=== PATIENT | female | born 1955 | race Caucasian/White ===

== ENCOUNTER 2020-01-23 15:04 | Emergency (ER) | payer OTHER, BC ==
[2020-01-23 15:24] VITALS: BMI 26.0
--- OUTSIDE RECORDS SUMMARY | 2020-01-23 15:27 | XMS ---
:1955 Author Organization [facility] Care Team Providers Name Role Phone NEERU TORRES Unavailable Unavailable Leeroy Rao MD Unavailable Unavailable Maggie Brownlee Unavailable Unavailable Re-disclosure Warning The records that you are about to access may contain information from federally- assisted alcohol or drug abuse programs. If such information is present, then the following federally mandated warning applies: This information has been disclosed to you from records protected by federal confidentiality rules (42 CFR part 2). The federal rules prohibit you from making any further disclosure of this information unless further disclosure is expressly permitted by the written consent of the person to whom it pertains or as otherwise permitted by 42 CFR part 2. A general authorization for the release of medical or other information is NOT sufficient for this purpose. The Federal rules restrict any use of the information to criminally investigate or prosecute any alcohol or drug abuse patient.The records that you are about to access may contain highly sensitive health information, the redisclosure of which is protected by Article 27-F of the [place] State Public Health law. If you continue you may haveaccess to information: Regarding HIV / AIDS; Provided by facilities licensed or operated by the [facility] Office of Mental Health; or Provided by the [facility] Office for People With Developmental Disabilities. If such information is present, then the following [facility] mandated warning applies: This information has been disclosed to you from confidential records which are protected by state law. State law prohibits you from making any further disclosure of this information without the specific written consent of the person to whom it pertains, or as otherwise permitted by law. Any unauthorized further disclosure in violation of state law may result in a fine or alf sentence or both. A general authorization for the release of medical or other information is NOT sufficient authorization for further disclosure. Allergies and Adverse Reactions Type Description Substance Reaction Status Data Source(s ) Food allergy shellfish derived shellfish derived UNKNOWN [facility] Drug allergy tramadol tramadol NAUSEA [facility] Food allergy lactose lactose UNKNOWN [facility] Drug allergy naproxen naproxen NAUSEA [facility] Encounters Encounter Providers Location Date Indications Data Source(s ) Outpatient Attender: 12/11/2018 CHEST PAIN [place] Leeroy Bliagos 09:30:00 AM UNSPECIFIED Hospi donald FUENTES EDT - 12/11/2018 09:02:00 AM EDT CHEST PAIN UNSPECIFIED Patient discharged. Emergency Attender: BRIAN 11/21/2018 09:21:[facility] CHEST PAINS Outpatient Attender: Maggie 07/24/2018 11:10:00 [facility] Medications Medication Brand Start Product Dose Route Administrative Pharmacy [facility] Indications Reaction Description Data Name Date Form Instructions Instructions Source(s) atorvastati Atorva TABLET 20 mg ORAL complet [facility] n 20 MG statin [place] Oral Tablet [facility] [Lipitor] m Atorvastati n Calcium Omeprazole Omepra CAPSULE, 40 mg ORAL complet [facility] 40 MG zole DELAYED [facility] [place] Delayed RELEASE Hospital Release Oral Capsule Aspirin 81 Aspiri ENTERIC 81 mg ORAL complet [facility] MG Delayed n COATED [facility] [place] Release TABLET Hospital Oral Tablet Metformin Metfor TABLET 1000 ORAL complet Whi te hydrochlori min mg [place] de 500 MG Hcl Hospital Oral Tablet [Glucophage ] Metformin Hcl Hydrochloro Hctz/L TABLET 1 ORAL complet [facility] thiazide isinop {Caps [place] 12.5 MG / ril ule} Hospital Lisinopril 10 MG Oral Tablet [Zestoretic ] Hctz/Lisino pril latanoprost Latano SOLUTION 0 OPHTHA complet White 0.05 MG/ML prost [facility] Solution [Xalatan] Latanoprost Timolol DROP 1 OPHTHA complet White Maleate [drp] [facility] Cholecalcif Cholec TABLET 1000 ORAL complet [facility] freddy alcife [facility] [place] (Vitamin rol Hospital D3) (Vitam in D3) Metoprolol Metopr TABLET 25 mg ORAL complet [facility] Tartrate 25 olol [facility] [place] MG Oral Tartra Hospital Tablet te Insurance Providers Payer name Policy type Policy ID Covered Covered green party's Policy P titus / Coverage green party ID relationship to Croft Inf ormation type croft BLUE CROSS [id number] SP [id number] SUPP PLAN MEDICARE [id number] LEHIGH [id number] HEALTH PLAN HMO Problems, Conditions, and Diagnoses Code Display Name Description Problem Type Effective Data Sour ce(s) Dates Z79.84 USP Z79.84 Diagnosis 12/11/2018 [place] (current) use of 09:01:00 AM Hospita l oral hypoglycemic EDT drugs 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 Diagnosis 12/11/2018 [place] (current) use of 09:01:00 AM Hospita l aspirin EDT M06.9 Rheumatoid M06.9 Diagnosis 12/11/2018 [place] arthritis, 09:01:00 AM Hospital unspecified EDT J45.909 Unspecified J45.909 Diagnosis 12/11/2018 [place] asthma, 09:01:00 AM Hospital uncomplicated EDT Z68.26 Body mass index Z68.26 Diagnosis 12/11/2018 [place] (BMI) 26.0-26.9, 09:01:00 AM Hospita l adult EDT E66.9 Obesity, E66.9 Diagnosis 12/11/2018 [place] unspecified 09:01:00 AM Hospital EDT E78.5 Hyperlipidemia, E78.5 Diagnosis 12/11/2018 [place] unspecified 09:01:00 AM Hospital EDT E11.9 Type 2 diabetes E11.9 Diagnosis 12/11/2018 [place] mellitus without 09:01:00 AM Hospita l complications EDT I10 Essential I10 Diagnosis 12/11/2018 [place] (primary) 09:01:00 AM Hospital hypertension EDT 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 Z91.013 Allergy to seafood ALLERGY TO SEAFOOD Diagnosis 9 [place] 09:21:00 PM [facility] [employer] Z91.011 Allergy to milk ALLERGY TO MILK Diagnosis 11/21/2018 [place] products PRODUCTS 09:21:00 PM [facility] [employer] Z90.89 Acquired absence ACQUIRED ABSENCE Diagnosis 11/21/2018 [place] of other organs OF OTHER ORGANS 09:21:[address] [facility] [employer] EDT [employer] Z41.1 Encounter for ENCOUNTER FOR Diagnosis 11/21/2018 [facility] cosmetic surgery COSMETIC SURGERY 09:21:00 PM [employer] E78.00 Pure PURE Diagnosis 11/21/2018 [place] hypercholesterolem HYPERCHOLESTEROLEM 09:21:00 PM [facility] ia, unspecified IA, UNSPECIFIED EDT [employer] I10 Essential ESSENTIAL Diagnosis 11/21/2018 [place] (primary) (PRIMARY) 09:21:00 PM [facility] hypertension HYPERTENSION EDT [employer] E11.9 Type 2 diabetes TYPE 2 DIABETES Diagnosis 11/21/2018 [place] mellitus without MELLITUS WITHOUT 09:21:00 PM [facility] complications COMPLICATIONS EDT [employer] R07.89 Other chest pain OTHER CHEST PAIN Diagnosis 11/21/2018 [place] 09:21:00 PM [facility] [employer] R07.2 Precordial pain PRECORDIAL PAIN Diagnosis 11/21/2018 [place] 09:21:00 PM [facility] [employer] Results ID Date Data Source [id number] 12/11/2018 09:31:00 AM EDT [facility] Industrial Sociologist: LAMBERT MARII Name Value Range Interpretation Description Data Sup porting Code Source(s) Document(s ) Glucose 124 mg/dL [place] [Mass/volume] [facility] in Capillary blood by Glucometer Procedure Social History Code Duration Value Status Description Data Source(s ) Smoking Unknown if ever completed Unknown if ever [facility] smoked smoked Hospital Vital Signs ID Date Data Source UNK Name Value Range Interpretation Code Description Data Source(s) Systolic blood 106 mm[Hg] 106 mm[Hg] [facility] [place] [facility] Diastolic blood 54 mm[Hg] 54 mm[Hg] [facility] ins pressure Hospital Respiratory rate 14 /min 14 /min [facility] Heart rate 66 /min 66 /min [facility] Body temperature 36.98465 Khloe 36.22867 Khloe [facility] Body temperature 98.4 [degF] 98.4 [degF] [facility] Body mass index 26.6 kg/m2 26.6 kg/m2 [facility] ins (BMI) [Ratio] Hospital Body weight 141 [lb_av] 141 [lb_av] [facility]
[2020-01-23] MEDS ORDERED: ONDANSETRON 4 MG/2 ML VIAL IVPUSH ONE (16:19)
[2020-01-23] MEDS ORDERED: LACTATED RINGERS SOLUTION 1000 ML INFUS.BAG IV ONE (16:20)
[2020-01-23] MEDS ORDERED: ACETAMINOPHEN 1000 MG/100 ML VIAL (NON FORMULARY) IVPB ONE (16:31)
[2020-01-23] MEDS ORDERED: FAMOTIDINE 20 MG/50 ML IVPB 20 MG/50 ML MG IVPB ONE (16:31)
[2020-01-23 16:34] LABS: BASO % 0.4 % (0-2.0); EOS % 1.1 % (0-4.5); HEMATOCRIT 36.2 % (32.4-45.2); HEMOGLOBIN 12.4 GM/dL (10.7-15.3); LYMPH % 19.8 % (8-40); MCH 32.8 pg (25.7-33.7); MCHC 34.2 g/dl (32.0-36.0); MEAN CELL VOLUME 95.7 fl (80-96); MEAN PLT VOLUME 9.4 fl (7.5-11.1); MONO % 5.7 % (3.8-10.2); PLATELET COUNT 217 K/MM3 (134-434); RBC 3.78 M/mm3 (3.60-5.2); RDW 12.7 % (11.6-15.6); WHITE BLOOD COUNT 6.4 K/mm3 (4.0-10.0)
[2020-01-23 16:58] LABS: BILIRUBIN,TOTAL 1.3 mg/dL (0.2-1); BLOOD UREA NITROGEN 16.2 mg/dL (7-18); CALCIUM 9.1 mg/dL (8.5-10.1); CREATININE 0.7 mg/dL (0.55-1.3); POTASSIUM 3.6 mmol/L (3.5-5.1); TOT PROT 7.2 g/dl (6.4-8.2)
[2020-01-23 17:07] LABS: PH,URINE 7.5 (5.0-8.0); URINE APPEARANCE CLEAR; URINE BILIRUBIN NEGATIVE (NEGATIVE); URINE COLOR YELLOW; URINE GLUCOSE (UA) TRACE (NEGATIVE); URINE KETONE TRACE (NEGATIVE); URINE LEUK ESTERASE NEGATIVE (NEGATIVE); URINE NITRITE NEGATIVE (NEGATIVE); URINE PROTEIN NEGATIVE (NEGATIVE); URINE UROBILINOGEN 0.2 mg/dL (0.2-1.0)
--- NOTE | 2020-01-23 17:13 | PDOC ---
Documentation entered by Sandra Carson SCRIBE, acting as scribe for Le Velez MD. Le Velez MD: This documentation has been prepared by the Connie mccormick Sydney, SCRIBE, under my direction and personally reviewed by me in its entirety. I confirm that the documentation accurately reflects all work, treatment, procedures, and medical decision making performed by me. Attending Attestation - Resident Resident Name: Vince Foss - ED Attending Attestation I have performed the following: I have examined & evaluated the patient, The case was reviewed & discussed with the resident, I agree w/resident's findings & plan, Exceptions are as noted - HPI HPI: 01/23/20 16:55 this 64 yo female p/w nausea and vomiting today and epigastric tenderness Patient is a 64 year old female with a significant past medical history of DM, HTN who presents to the ED with sudden onset nausea and several episodes of NBNB vomiting since 2pm this afternoon. As per patient, she was at home when she st arted suddenly vomiting. Patient endorses chills immediately after shes done vomiting and epigastric pain. She denies recent travel, changes in medication or additional stress. Denies headache, fever, shortness of breath, chest pain, diarrhea, or urinary changes. Allergies: shellfish, lactose PCP: Dr. Glass 01/23/20 17:10 - Physicial Exam PE: 01/23/20 17:11 wnwd 64 yo female p/w nausea and vomiting head ncat neck supple lungs cta b/l cvs [id number] abdomen epigastric tenderness skin warm and dry extremities no edema neuro axox3,ambulatory - Medical Decision Making 01/23/20 18:11 normal cbc no fever chemistries show [id number] , normal lipase UA +ketone 01/23/20 18:14 01/23/20 19:27 pt"s symptoms resolved after IVF and reglan Discharge - Discharge Information Problems reviewed: Yes Clinical Impression/Diagnosis: Gastritis Qualifiers: Gastritis type: unspecified gastritis Chronicity: acute Gastritis bleeding: without bleeding Qualified Code(s): K29.00 - Acute gastritis without bleeding Vomiting Qualifiers: Vomiting type: bilious vomiting Nausea presence: with nausea Qualified Code(s): R11.14 - Bilious vomiting Headache Qualifiers: Headache type: unspecified Headache chronicity pattern: acute headache Intractability: not intractable Qualified Code(s): R51 - Headache Disposition: HOME - Follow up/Referral Referrals: Christal Glass MD [Primary Care Provider] - Dougie Vaughn MD [Staff Physician] - - Patient Discharge Instructions Patient Printed Discharge Instructions: DI for Gastroesophageal Reflux Disease (GERD), DI for Gastritis, DI for Vomiting -- Adult Additional Instructions: You came to the ED after an acute vomiting episode. We tested your blood and treated you with medicine (zofran, reglan and tylenol). These worked to relieve your symptoms. Your blood work is normal at this time, and based on you feeling better, we deem you safe for discharge home. Please follow up within two days (48hrs) of leaving the ED with Dr. Vaughn (gastrointestinal doctor) in addition to your primary doctor. Come back if the symptoms get worse. - Post Discharge Activity
[2020-01-23] MEDS ORDERED: ACETAMINOPHEN INJECTION 100 ML IVPB ONE (17:19)
[2020-01-23] MEDS ORDERED: METOCLOPRAMIDE HCL INJECTION 10 MG/2 ML VIAL IVPUSH ONE (17:29)
[2020-01-23 17:31] LABS: LIPASE 121 U/L (73-393)
[2020-01-23] MEDS ORDERED: METOCLOPRAMIDE HCL INJECTION 10 MG/2 ML VIAL ONE (17:49)
[2020-01-23 18:08] VITALS: TEMP 98.9
--- NOTE | 2020-01-23 18:37 | PDOC ---
History of Present Illness - General Chief Complaint: Pain Stated Complaint: ABD PAIN Time Seen by Provider: 01/23/20 15:54 - History of Present Illness Initial Comments: 01/23/20 18:36 64yo F w/ PMHx HTN, DM, and GERD presents w/ multiple episodes of vomiting this afternoon. Past History - Medical History Allergies/Adverse Reactions: Allergies Allergy/AdvReac Type Severity Reaction Status Date / Time shellfish derived Allergy Verified 01/23/20 16:36 lactose AdvReac Verified 01/23/20 16:36 Home Medications: Ambulatory Orders Brimonidine Tartrate/Timolol [Combigan Eye Drops] 5 ml OP BID 10/24/15 metFORMIN HCL [Metformin HCl] 1,000 mg PO DAILY 10/24/15 Atorvastatin Calcium [Lipitor] 20 mg PO HS 01/23/20 Lisinopril/Hydrochlorothiazide [Lisinopril-Hctz 10-12.5 mg Tab] 1 each PO DAILY 01/23/20 Anemia: No Asthma: Yes (NO RECENT ATTACK) Cancer: No Cardiac Disorders: No CVA: No COPD: No CHF: No Dementia: No Diabetes: Yes (TYPE 2) GI Disorders: Yes Disorders: No HTN: Yes Hypercholesterolemia: Yes (NOT ON MEDS RIGHT NOW) Liver Disease: No Seizures: No Thyroid Disease: No - Surgical History Abdominal Surgery: No Appendectomy: Yes Cardiac Surgery: No Cholecystectomy: Yes Lung Surgery: No Neurologic Surgery: No Orthopedic Surgery: No - Immunization History Immunization Up to Date: Yes - Psycho-Social/Smoking History Smoking History: Never smoked Have you smoked in the past 12 months: No - Substance Abuse Hx (Audit-C & DAST Scrn) How often the patient has a drink containing alcohol: Never Score: In Men: 4 or > Positive; In Women: 3 or > Positive: 0 Screen Result (Pos requires Nsg. Audit-10AR): Negative *Physical Exam - Vital Signs Last Vital Signs Temp Pulse Resp BP Pulse Ox 98.9 F 84 20 152/84 97 01/23/20 17:52 01/23/20 15:12 01/23/20 15:12 01/23/20 15:12 01/23/20 15:12 ED Treatment Course - LABORATORY CBC & Chemistry Diagram: 01/23/20 15:40 01/23/20 15:40 - ADDITIONAL ORDERS Additional order review: Laboratory Results 01/23/20 01/23/20 01/23/20 16:50 16:50 16:45 Sodium Potassium Chloride Carbon Dioxide Anion Gap BUN Creatinine Est GFR (CKD-EPI)AfAm Est GFR (CKD-EPI)NonAf POC Glucometer 143 Random Glucose Calcium Total Bilirubin AST ALT Alkaline Phosphatase Creatine Kinase 105 Troponin I < 0.02 Total Protein Albumin Lipase 121 Urine Color Yellow Urine Appearance Clear Urine pH 7.5 Ur Specific [place] 1.015 Urine Protein Negative Urine Glucose (UA) Trace Urine Ketones Trace H Urine Blood Negative Urine Nitrite Negative Urine Bilirubin Negative Urine Urobilinogen 0.2 Ur Leukocyte Esterase Negative 01/23/20 15:40 Sodium 139 Potassium 3.6 Chloride 103 Carbon Dioxide 31 Anion Gap 6 L BUN 16.2 Creatinine 0.7 Est GFR (CKD-EPI)AfAm 105.38 Est GFR (CKD-EPI)NonAf 90.92 POC Glucometer Random Glucose 177 H Calcium 9.1 Total Bilirubin 1.3 H AST 14 L ALT 22 Alkaline Phosphatase 72 Creatine Kinase Troponin I Total Protein 7.2 Albumin 4.0 Lipase Urine Color Urine Appearance Urine pH Ur Specific [place] Urine Protein Urine Glucose (UA) Urine Ketones Urine Blood Urine Nitrite Urine Bilirubin Urine Urobilinogen Ur Leukocyte Esterase 01/23/20 01/23/20 16:45 15:40 RBC 3.78 MCV 95.7 MCHC 34.2 RDW 12.7 MPV 9.4 Neutrophils % 73.0 Lymphocytes % 19.8 D Monocytes % 5.7 Eosinophils % 1.1 D Basophils % 0.4 POC Glucometer 143 - Medications Given in the ED: ED Medications Discontinued Medications Generic Name Dose Route Start Last Admin Trade Name Harshil PRN Reason Stop Dose Admin Acetaminophen 1,000 mg 01/23/20 16:31 01/23/20 17:24 Ofirmev Injection - IVPB 01/23/20 16:32 1,000 mg ONCE ONE Administration Famotidine/Sodium Chloride 20 mg in 50 mls @ 100 mls/hr 01/23/20 16:31 01/23/20 17:00 Pepcid 20 Mg Premixed Ivpb - IVPB 01/23/20 17:00 100 mls/hr ONCE ONE Administration Lactated Ringer's 1,000 ml 01/23/20 16:20 01/23/20 16:34 Lactated Ringers Solution IV 01/23/20 16:21 1,000 ml ONCE ONE Administration Metoclopramide HCl 10 mg 01/23/20 17:29 01/23/20 17:52 Reglan Injection - IVPUSH 01/23/20 17:30 10 mg ONCE ONE Administration Ondansetron HCl 4 mg 01/23/20 16:19 01/23/20 16:34 Zofran Injection IVPUSH 01/23/20 16:20 4 mg ONCE ONE Administration Discharge - Discharge Information Problems reviewed: Yes Clinical Impression/Diagnosis: Gastritis Qualifiers: Gastritis type: unspecified gastritis Chronicity: acute Gastritis bleeding: without bleeding Qualified Code(s): K29.00 - Acute gastritis without bleeding Vomiting Qualifiers: Vomiting type: bilious vomiting Nausea presence: with nausea Qualified Code(s): R11.14 - Bilious vomiting Headache Qualifiers: Headache type: unspecified Headache chronicity pattern: acute headache Intractability: not intractable Qualified Code(s): R51 - Headache - Follow up/Referral Referrals: Christal Glass MD [Primary Care Provider] - Dougie Vaughn MD [Staff Physician] - - Patient Discharge Instructions Patient Printed Discharge Instructions: DI for Gastritis, DI for Vomiting -- Adult, DI for Gastroesophageal Reflux Disease (GERD) Additional Instructions: You came to the ED after an acute vomiting episode. We tested your blood and treated you with medicine (zofran, reglan and tylenol). These worked to relieve your symptoms. Your blood work is normal at this time, and based on you feeling better, we deem you safe for discharge home. Please follow up within two days (48hrs) of leaving the ED with Dr. Vaughn (gastrointestinal doctor) in addition to your primary doctor. Come back if the symptoms get worse. - Post Discharge Activity
[2020-01-23 19:22] VITALS: BP 119/95; PULSE 72
--- NOTE | 2020-01-24 10:19 | EKG ---
Test Reason : Blood Pressure : / mmHG Vent. Rate : 090 BPM Atrial Rate : 090 BPM P-R Int : 180 ms QRS Dur : 082 ms QT Int : 370 ms P-R-T Axes : 039 036 031 degrees QTc Int : 452 ms NORMAL SINUS RHYTHM NORMAL ECG WHEN COMPARED WITH ECG OF 23-JAN-2020 15:45, NO SIGNIFICANT CHANGE WAS FOUND Confirmed by NARGIS WINN MD ([id number]) on 01/24/2020 10:18:37 AM Referred By: Confirmed By:NARGIS WINN MD
--- NOTE | 2020-01-26 10:05 | EKG ---
Test Reason : Blood Pressure : / mmHG Vent. Rate : 090 BPM Atrial Rate : 090 BPM P-R Int : 190 ms QRS Dur : 082 ms QT Int : 362 ms P-R-T Axes : 048 022 028 degrees QTc Int : 442 ms POOR DATA QUALITY, INTERPRETATION MAY BE ADVERSELY AFFECTED NORMAL SINUS RHYTHM NORMAL ECG WHEN COMPARED WITH ECG OF 24-OCT-2015 13:16, NO SIGNIFICANT CHANGE WAS FOUND Confirmed by Luis Gutiérrez ([id number]) on 01/26/2020 10:04:50 AM Referred By: Confirmed By:Luis Gutiérrez
== END 2020-01-23 19:34 | disposition home or self-care (01) ==
LOC: JER 15:04
PROC: 3E0333Z Introduction of Anti-inflammatory into Peripheral Vein, Percutaneous Approach (ICD-10-PCS; principal; 2020-01-23)
PROC: 3E033GC Introduction of Other Therapeutic Substance into Peripheral Vein, Percutaneous Approach (ICD-10-PCS; 2020-01-23)
DX: K29.00 Acute gastritis without bleeding (principal); R11.14 Bilious vomiting; R51 Headache
CPT/HCPCS: 36415; 80053; 81003; 82550; 82962; 83690; 84484; 85025; 93005; 93010; 99284-25; J0131

== ENCOUNTER 2024-12-26 02:39 | Emergency (ER) | payer BC, OTHER ==
[2024-12-26 02:57] VITALS: TEMP 98.1; BMI 21.2
[2024-12-26 03:47] LABS: ABSOLUTE IMMATURE GRANULOCYTES 0.01 x10^3/uL (0.0-0.031); BASOPHILS # 0.02 x10^3/uL (0.01-0.08); EOSINOPHIL % 2.2 % (0.7-5.8); EOSINOPHILS # 0.11 x10^3/uL (0.04-0.36); MCHC 32.2 g/dl (32.2-35.5); MEAN CELL VOLUME 99.4 fl (79.4-94.8); MEAN PLT VOLUME 10.6 fl (9.4-12.3); MONOCYTE # 0.42 x10^3/uL (0.24-0.86); MONOCYTE % 8.4 % (4.7-12.5); RDW 12.3 % (12.4-16.4)
[2024-12-26 03:55] LABS: INR 0.86 (0.83-1.09); PROTHROMBIN TIME (PATIENT) 9.4 SEC (9.7-13.0)
[2024-12-26 03:58] LABS: ACTIVATED PTT 28.0 SECONDS (25.2-36.5)
[2024-12-26 04:09] LABS: TOT PROT 6.4 g/dl (6.4-8.2)
[2024-12-26 04:10] LABS: CO2 27.0 mmol/L (21-32)
[2024-12-26 04:12] LABS: ALK PHOS 54.0 U/L (40-150)
[2024-12-26 04:15] LABS: CREATININE 0.84 mg/dL (0.55-1.3); SGOT/AST 19.0 U/L (5-34); SGPT/ALT 12.0 U/L (0-55)
[2024-12-26 04:17] LABS: GLUCOSE,RANDOM 128.0 mg/dL (74-106)
[2024-12-26] MEDS: FAMOTIDINE 20 MG/50 ML IVPB 20 MG/50 ML MG IVPB ONE (05:08)
[2024-12-26] MEDS ORDERED: MAG HYDROX/AL HYDROX/SIMETH 30 ML UNIT-DOSE CUP ONE (05:08)
[2024-12-26] MEDS: MAG HYDROX/AL HYDROX/SIMETH 30 ML UNIT-DOSE CUP PO ONE (05:08)
[2024-12-26] MEDS ORDERED: FAMOTIDINE 20 MG/50 ML IVPB 20 MG/50 ML MG IVPB ONE (05:08)
[2024-12-26 06:10] VITALS: BP 140/81; PULSE 63; RESP 19
== END 2024-12-26 06:35 | disposition home or self-care (01) ==
LOC: JER 02:39
PROC: 3E033GC Introduction of Other Therapeutic Substance into Peripheral Vein, Percutaneous Approach (ICD-10-PCS; principal; 2024-12-26)
DX: F43.20 Adjustment disorder, unspecified (principal); R53.83 Other fatigue; R53.1 Weakness; R10.13 Epigastric pain; R68.2 Dry mouth, unspecified; R11.0 Nausea; R42 Dizziness and giddiness; R00.1 Bradycardia, unspecified
CPT/HCPCS: 36415; 70450-TC; 71045-TC-FY; 80053; 82962; 83690; 84484; 85025; 85610; 85730; 86850; 86900; 86901; 93005; 93010; 99285-25